=== PATIENT | female | born 1990 | race Caucasian/White ===

== ENCOUNTER 2017-06-27 19:32 | Emergency (ER) | payer OTHER ==
[2017-06-27 23:25] VITALS: BP 132/62
== END 2017-06-27 23:25 | disposition home or self-care (01) ==
LOC: ED 19:32
DX: N83.201 Unspecified ovarian cyst, right side (principal); N64.4 Mastodynia
CPT/HCPCS: 36415; 87491; 87591

== ENCOUNTER 2018-05-19 12:28 | Emergency (ER) | payer OTHER ==
[~2018-05-19] VITALS: Ht 154.9 cm; Wt 56.7 kg
[2018-05-19 12:35] VITALS: Ht 154.9 cm; Wt 56.7 kg
[2018-05-19 13:58] VITALS: BP 113/49
== END 2018-05-19 13:58 | disposition home or self-care (01) ==
LOC: ED 12:28
DX: J02.9 Acute pharyngitis, unspecified (principal)

== ENCOUNTER 2018-10-03 16:37 | Emergency (ER) | payer OTHER ==
[~2018-10-03] VITALS: Ht 154.9 cm; Wt 57.2 kg
[2018-10-03 16:40] VITALS: BP 124/81; Ht 154.9 cm; Wt 57.2 kg
== END 2018-10-03 17:45 | disposition home or self-care (01) ==
LOC: ED 16:37
DX: N39.0 Urinary tract infection, site not specified (principal)